=== PATIENT | female | born 1980 | race Caucasian/White ===

== ENCOUNTER 2017-08-14 19:33 | Emergency (ER) | payer MEDICAID ==
[~2017-08-14] VITALS: Ht 160 cm; Wt 53.1 kg
[2017-08-14] MEDS ORDERED: BUTALB-APAP-CA1 EACH PO (20:50)
[2017-08-14] MEDS ORDERED: ZOFRAN ODT4 MG PO (20:51)
[2017-08-14 21:08] VITALS: BP 107/62
== END 2017-08-14 21:09 | disposition home or self-care (01) ==
LOC: M.ERS 19:33
DX: R51 Headache (principal); F41.9 Anxiety disorder, unspecified; F32.9 Major depressive disorder, single episode, unspecified; Z88.0 Allergy status to penicillin

== ENCOUNTER 2017-08-25 14:37 | Emergency (ER) | payer MEDICAID ==
[~2017-08-25] VITALS: Ht 160 cm; Wt 54.4 kg
[~2017-08-25 14:37] MED LIST: BUTALB-APAP-CA1 EACH PO; ZOFRAN ODT4 MG PO
[2017-08-25] MEDS ORDERED: KEFLEX500 M1 PO (15:47)
[2017-08-25 16:05] VITALS: BP 116/71
== END 2017-08-25 16:12 | disposition home or self-care (01) ==
LOC: M.ERS 14:37
DX: K08.89 Other specified disorders of teeth and supporting structures (principal); R51 Headache; F41.9 Anxiety disorder, unspecified; F32.9 Major depressive disorder, single episode, unspecified; F10.99 Alcohol use, unspecified with unspecified alcohol-induced disorder; Z88.0 Allergy status to penicillin

== ENCOUNTER 2018-02-10 02:02 | Emergency (ER) | payer OTHER ==
[~2018-02-10] VITALS: Ht 160 cm; Wt 54.4 kg
[~2018-02-10 02:02] MED LIST changes: +KEFLEX500 M1 PO
[2018-02-10] MEDS ORDERED: PRILOSEC (02:11)
[2018-02-10] MEDS ORDERED: REGLAN (02:11)
[2018-02-10] MEDS ORDERED: BENTYL (02:11)
[2018-02-10] MEDS ORDERED: GABAPENTIN (02:11)
[2018-02-10] MEDS ORDERED: AMITRIPTYLINE (02:12)
[2018-02-10] MEDS ORDERED: TYLENOL (02:12)
[2018-02-10] MEDS ORDERED: CYMBALTA (02:12)
[2018-02-10 02:36] LABS: URINE BILIRUBIN NEGATIVE (Negative); URINE BLOOD NEGATIVE (Negative); URINE CLARITY CLEAR; URINE COLOR YELLOW; URINE GLUCOSE-RANDOM NEGATIVE (Negative); URINE KETONES NEGATIVE (Negative); URINE LEUKOCYTES-REFLEX TRACE (Negative); URINE NITRITE-REFLEX NEGATIVE (Negative); URINE PROTEIN NEGATIVE (Negative); URINE UROBILINOGEN 0.2 E.U./dl (0.2-1.0)
[2018-02-10 02:49] LABS: ABSOLUTE BASOPHILS 0.1 thou/uL (0.0-0.2); ABSOLUTE EOSINOPHILS 0.5 thou/uL (0.0-0.7); ABSOLUTE LYMPHOCYTES 2.3 thou/uL (0.8-5.3); ABSOLUTE MONOCYTES 0.5 thou/uL (0.0-1.2); ABSOLUTE NEUTROPHILS 3.1 thou/uL (1.6-8.1); EOSINOPHILS 7.6 %; HEMATOCRIT 32.8 % (37.0-47.0); HEMOGLOBIN 10.5 gm/dL (12.0-15.0); LYMPHOCYTES 35.7 %; MCH 26.6 pg (26.0-34.0); MCHC 31.9 g/dL (28.0-37.0); MCV 83.4 fL (80.0-100.0); MONOCYTES 7.6 %; MPV 7.1 fl. (7.2-11.1); NUCLEATED RBCS 0 /100WBC; PLATELET COUNT* 434 thou/uL (150-400); POLYS 48.1 %; RBC 3.94 mil/uL (4.20-5.00); RDW-CV 18.2 % (10.5-14.5); WBC 6.4 thou/uL (4.0-11.0)
[2018-02-10 02:50] LABS: AMP/METHAMP Negative (Negative); BARBITURATES Negative (Negative); BENZODIAZEPINES Negative (Negative); COCAINE Negative (Negative); METHADONE Negative (Negative); OPIATES Negative (Negative); PCP Negative (Negative); THC POSITIVE (Negative)
[2018-02-10 02:50] LABS: SQUAMOUS 0-3 Few /LPF (0-3); TRANSITIONAL EPITHEL CELL 0-3 Few /LPF (None Seen)
[2018-02-10 02:51] LABS: BACTERIA-REFLEX >30 Many /HPF (None Seen); CASTS None Seen /LPF (None Seen); CRYSTALS None Seen /LPF (None Seen); MUCUS 4-6 Moderate strn/LPF (None Seen); URINE RBC 3-10 Few /HPF (0-2); URINE WBC-REFLEX 6-15 Few /HPF (0-5)
[2018-02-10 02:59] LABS: ANION GAP 4 mmol/L (7-16); BUN 16 mg/dL (7-18); CALCIUM 8.8 mg/dL (8.5-10.1); CHLORIDE 103 mmol/L (98-107); CO2 30 mmol/L (21-32); CREATININE 0.9 mg/dL (0.6-1.3); GLUCOSE 89 mg/dL (70-99); SODIUM 137 mmol/L (136-145)
[2018-02-10 03:04] LABS: ALBUMIN 3.5 g/dL (3.4-5.0); ALKALINE PHOSPHATASE 101 U/L (46-116); LIPASE 219 U/L (73-393); SGOT 114 U/L (15-37); SGPT 170 U/L (30-65); TOTAL PROTEIN 7.3 g/dL (6.4-8.2)
[2018-02-10 03:10] LABS: TOTAL BILIRUBIN < 0.1 mg/dL (<0.1-1.0)
[2018-02-10] MEDS ORDERED: NORCO 5-325 TA1 EACH PO (03:42)
[2018-02-10] MEDS ORDERED: BACTRIM DS TAB1 EACH PO (03:42)
[2018-02-10 04:14] VITALS: BP 115/66
== END 2018-02-10 04:05 | disposition home or self-care (01) ==
LOC: M.ERS 02:02
PROVIDERS: Emergency Medicine
DX: N39.0 Urinary tract infection, site not specified (principal); G43.909 Migraine, unspecified, not intractable, without status migrainosus; F41.9 Anxiety disorder, unspecified; F32.9 Major depressive disorder, single episode, unspecified; M79.7 Fibromyalgia; Z88.0 Allergy status to penicillin

== ENCOUNTER 2018-04-04 16:58 | Emergency (ER) | payer MEDICAID ==
[~2018-04-04] VITALS: Ht 160 cm; Wt 54.4 kg
[~2018-04-04 16:58] MED LIST changes: +AMITRIPTYLINE; +BACTRIM DS TAB1 EACH PO; +BENTYL; +CYMBALTA; +GABAPENTIN; +NORCO 5-325 TA1 EACH PO; +PRILOSEC; +REGLAN; +TYLENOL
[2018-04-04 17:32] LABS: URINE BILIRUBIN NEGATIVE (Negative); URINE BLOOD NEGATIVE (Negative); URINE CLARITY CLEAR; URINE COLOR YELLOW; URINE GLUCOSE-RANDOM NEGATIVE (Negative); URINE KETONES NEGATIVE (Negative); URINE LEUKOCYTES NEGATIVE (Negative); URINE NITRITE NEGATIVE (Negative); URINE PROTEIN NEGATIVE (Negative); URINE UROBILINOGEN 0.2 E.U./dl (0.2-1.0)
[2018-04-04 17:36] LABS: ABSOLUTE EOSINOPHILS 0.1 thou/uL (0.0-0.7); ABSOLUTE LYMPHOCYTES 1.7 thou/uL (0.8-5.3); ABSOLUTE MONOCYTES 0.4 thou/uL (0.0-1.2); BASOPHILS 0.8 %; EOSINOPHILS 2.9 %; HEMATOCRIT 33.8 % (37.0-47.0); HEMOGLOBIN 10.9 gm/dL (12.0-15.0); LYMPHOCYTES 40.6 %; MCH 25.4 pg (26.0-34.0); MCHC 32.4 g/dL (28.0-37.0); MCV 78.5 fL (80.0-100.0); MONOCYTES 9.2 %; MPV 7.5 fl. (7.2-11.1); NUCLEATED RBCS 0 /100WBC; PLATELET COUNT* 323 thou/uL (150-400); POLYS 46.5 %; RDW-CV 19.8 % (10.5-14.5); WBC 4.2 thou/uL (4.0-11.0)
[2018-04-04 17:40] LABS: CREATININE 0.8 mg/dL (0.6-1.3); POTASSIUM 3.7 mmol/L (3.5-5.1)
[2018-04-04 17:45] LABS: ALBUMIN 3.5 g/dL (3.4-5.0); TOTAL BILIRUBIN 0.2 mg/dL (<0.1-1.0); TOTAL PROTEIN 7.1 g/dL (6.4-8.2)
[2018-04-04] MEDS ORDERED: CARAFATE1 GM/10 ML PO (18:42)
[2018-04-04] MEDS ORDERED: BENTYL 20 MG TA20 M1 PO (18:42)
[2018-04-04 18:53] VITALS: BP 122/81
== END 2018-04-04 18:53 | disposition home or self-care (01) ==
LOC: M.ERS 16:58
PROVIDERS: Nurse Practitioner Family
DX: R10.84 Generalized abdominal pain (principal); R11.2 Nausea with vomiting, unspecified; R19.7 Diarrhea, unspecified; G43.909 Migraine, unspecified, not intractable, without status migrainosus; F41.9 Anxiety disorder, unspecified; F32.9 Major depressive disorder, single episode, unspecified; M79.7 Fibromyalgia; Z88.0 Allergy status to penicillin

== ENCOUNTER 2019-03-20 18:33 | Emergency (ER) | payer MEDICAID ==
[~2019-03-20] VITALS: Ht 160 cm; Wt 54.4 kg
[~2019-03-20 18:33] MED LIST changes: +BENTYL 20 MG TA20 M1 PO; +CARAFATE1 GM/10 ML PO; -PRILOSEC; +PRILOSEC OTC20 MG PO
[2019-03-20] MEDS ORDERED: LYRICA 50 MG50 MG PO (18:41)
[2019-03-20] MEDS ORDERED: ESSENTIAL DAIL1 EACH PO (18:41)
[2019-03-20] MEDS ORDERED: TRAMADOL 50 MG50 MG PO (19:40)
[2019-03-20] MEDS ORDERED: CLEOCIN HCL300 MG PO (19:40)
[2019-03-20] MEDS ORDERED: PERIDEX 0.12%473 M1 PO (19:40)
[2019-03-20 19:53] VITALS: BP 118/88
== END 2019-03-20 19:54 | disposition home or self-care (01) ==
LOC: M.ERS 18:33
DX: K08.89 Other specified disorders of teeth and supporting structures (principal); L53.9 Erythematous condition, unspecified; G43.909 Migraine, unspecified, not intractable, without status migrainosus; F41.9 Anxiety disorder, unspecified; F32.9 Major depressive disorder, single episode, unspecified; M79.7 Fibromyalgia; Z98.51 Tubal ligation status; Z88.0 Allergy status to penicillin; Z88.6 Allergy status to analgesic agent

== ENCOUNTER 2019-07-30 00:25 | Emergency (ER) | payer MEDICAID ==
[~2019-07-30] VITALS: Ht 160 cm; Wt 49.9 kg
[~2019-07-30 00:25] MED LIST changes: +CLEOCIN HCL300 MG PO; +ESSENTIAL DAIL1 EACH PO; +LYRICA 50 MG50 MG PO; +PERIDEX 0.12%473 M1 PO; +TRAMADOL 50 MG50 MG PO
[2019-07-30] MEDS ORDERED: NORTRIPTYLINE H10 M1 PO (00:35)
[2019-07-30] MEDS ORDERED: ERYTHROMYCIN500 MG PO (00:47)
[2019-07-30] MEDS ORDERED: TYLENOL WITH CO1 TA1 PO (00:47)
[2019-07-30 01:00] VITALS: BP 130/65
== END 2019-07-30 01:00 | disposition home or self-care (01) ==
LOC: M.ERS 00:25
DX: S02.5XXA Fracture of tooth (traumatic), initial encounter for closed fracture (principal); K02.9 Dental caries, unspecified; G43.909 Migraine, unspecified, not intractable, without status migrainosus; M79.7 Fibromyalgia; Z88.0 Allergy status to penicillin; Z88.6 Allergy status to analgesic agent; Z98.51 Tubal ligation status; X58.XXXA Exposure to other specified factors, initial encounter; Y93.89 Activity, other specified; Y92.89 Other specified places as the place of occurrence of the external cause; Y99.8 Other external cause status